=== PATIENT | male | born 1950 | race Caucasian/White ===

== ENCOUNTER 2017-02-26 12:37 | Inpatient (IN) | payer OTHER, BC ==
[~2017-02-26] VITALS: Ht 170.2 cm; Wt 63.6 kg
[~2017-02-26 12:37] MED LIST: PROAIR HFA8.5 GM; SPIRIVA1 INHALATI; TAMSULOSIN HCL0.4 MG
[2017-02-26 13:36] LABS: HEMATOCRIT 46.6 % (38.0-50.0); MCH 31.3 PG (29.0-34.0); MCHC 32.4 G/DL (30.0-36.0); MCV 96.7 FL (86-99); MEAN PLAT.VOLUME 9.8 uM^3 (9.0-12.4); PLATELET COUNT 242 K/uL (156-360); RBC DIS.WIDTH-CV 11.3 % (11.8-14.6); RBC DIS.WIDTH-SD 40.4 % (39-53); RED BLOOD COUNT 4.82 M/uL (4.00-5.50); WHITE BLOOD COUNT 9.9 K/uL (4.1-10.2)
[2017-02-26 13:38] LABS: INTER. NORMALIZED RATIO 1.2; PROTHROMBIN TIME 12.5 (9.2-11.2); PTT 32.4 (25-32)
[2017-02-26 13:52] LABS: TROP-I INTERPRETATION NEGATIVE; TROPONIN-I 0.05 ng/mL (0.0-0.30)
[2017-02-26 14:05] LABS: ANION GAP 7 MEQ/L (2-14); CHLORIDE 94 MEQ/L (99-109); MAGNESIUM 2.5 mg/dl (1.3-2.7); POTASSIUM 4.2 MEQ/L (3.7-5.4); SAMPLE HEMOLYSIS CHECK 0; SAMPLE ICTERIC CHECK 0; SAMPLE LIPEMIA CHECK 0; SODIUM 135 MEQ/L (136-147)
[2017-02-26 14:10] LABS: GFR ESTIMATE (CALCULATED) > 59 mL/min/; GLUCOSE 146 mg/dL (70-99); UREA NITROGEN (BUN) 28 mg/dL (9-23)
[2017-02-26] MEDS ORDERED: TAMSULOSIN HCL0.4 MG PO (16:42)
[2017-02-26] MEDS ORDERED: SPIRIVA1 INHALATI IH (16:42)
[2017-02-26] MEDS ORDERED: PROAIR HFA8.5 GM IH (16:43)
[2017-02-26] MEDS ORDERED: DUTASTERIDE0.5 MG PO (16:43)
[2017-02-26 18:22] VITALS: BP 125/81
[2017-02-26 19:14] LABS: ABS NEUTROPHIL COUNT 8.6; BAND NEUTROPHILS 43.5 % (0-8.0); EOSINOPHIL ABS CT 0; INSTRUMENT ABS NEUTROPHIL CT 7.3 K/uL; PLAT.SUFFICIENCY ADEQUATE; SEG.NEUTROPHILS 43.5 % (46.0-76.0); SMUDGE CELLS 2.6
[2017-02-26 19:17] LABS: INFLUENZA A VIRAL ANTIGEN NEGATIVE; INFLUENZA B VIRAL ANTIGEN NEGATIVE
[2017-02-26 20:03] LABS: TROP-I INTERPRETATION NEGATIVE; TROPONIN-I 0.04 ng/mL (0.0-0.30)
[2017-02-26 20:04] LABS: BASE EXCESS 2.4 mEq/L (-3 to +3); METHEMOGLOBIN 1.8 % (0-1.5); PCO2 89 mm Hg (35-45); PO2 77 mm Hg (80-100)
[2017-02-26 20:05] LABS: COMMENTS - BLOOD GASES C+A+; DEVICE NC; O2 FLOW 4 L/MIN; SITE LR; pH 7.19 (7.35-7.45)
[2017-02-26 20:07] LABS: D-DIMER ELISA 0.93 mg/L FEU (< 0.57)
[2017-02-26 20:50] VITALS: BP 56/41
[2017-02-26 21:00] VITALS: BP 78/60
[2017-02-26 22:00] VITALS: BP 117/76
[2017-02-26 22:04] LABS: BASE EXCESS 1.8 mEq/L (-3 to +3); BICARBONATE 28.2 mEq/L (22-26); CARBOXY HGB 2.5 % (0-5); COMMENTS - BLOOD GASES C+; DEVICE 840; FI02 100 %; METHEMOGLOBIN 2.3 % (0-1.5); MODE AC; PCO2 50 mm Hg (35-45); PO2 548 mm Hg (80-100); SITE LR; pH 7.36 (7.35-7.45)
[2017-02-26 22:05] LABS: MECHANICAL RATE 16 resp/min; PEEP 5 CM/H20; TIDAL VOLUME 500 ML; TOTAL RESP RATE 16 resp/min
[2017-02-26 22:58] LABS: METH RESISTANT S AUREUS PCR NEGATIVE (NEGATIVE)
[2017-02-26 23:00] VITALS: BP 88/64
[2017-02-26 23:00] LABS: PROBE CHECK PASS; SPECIMEN PROCESSING CONTROL PASS
[2017-02-27] VITALS (23 sets, daily range): BP systolic 74–124; BP diastolic 54–75
[2017-02-27 02:24] LABS: TROP-I INTERPRETATION NEGATIVE; TROPONIN-I 0.03 ng/mL (0.0-0.30)
[2017-02-27 06:02] LABS: ANION GAP 7 MEQ/L (2-14); CHLORIDE 94 MEQ/L (99-109); GFR ESTIMATE (CALCULATED) > 59 mL/min/; GLUCOSE 160 mg/dL (70-99); SAMPLE HEMOLYSIS CHECK 0; SAMPLE ICTERIC CHECK 0; SAMPLE LIPEMIA CHECK 0; SODIUM 132 MEQ/L (136-147); UREA NITROGEN (BUN) 24 mg/dL (9-23)
[2017-02-27 07:17] LABS: ABS NEUTROPHIL COUNT 4.6; EOSINOPHIL ABS CT 0; HEMATOCRIT 35.9 % (38.0-50.0); LYMPHOCYTES 2.7 % (15.0-45.0); MCH 31.3 PG (29.0-34.0); MCHC 32.9 G/DL (30.0-36.0); MCV 95.2 FL (86-99); MEAN PLAT.VOLUME 9.9 uM^3 (9.0-12.4); PLAT.SUFFICIENCY ADEQUATE; PLATELET COUNT 196 K/uL (156-360); RBC DIS.WIDTH-CV 11.6 % (11.8-14.6); RBC DIS.WIDTH-SD 40.5 % (39-53)
[2017-02-27 07:34] LABS: BAND NEUTROPHILS 12.6 % (0-8.0); RED BLOOD COUNT 3.77 M/uL (4.00-5.50); SEG.NEUTROPHILS 72.1 % (46.0-76.0); WHITE BLOOD COUNT 5.4 K/uL (4.1-10.2)
[2017-02-28] VITALS (24 sets, daily range): BP systolic 93–121; BP diastolic 59–77
[2017-02-28 15:06] LABS: ALKALINE PHOSPHATASE 33 IU/L (3-129); ANION GAP 2 MEQ/L (2-14); CHLORIDE 99 MEQ/L (99-109); GFR ESTIMATE (CALCULATED) > 59 mL/min/; GLUCOSE 184 mg/dL (70-99); POTASSIUM 4.1 MEQ/L (3.7-5.4); SAMPLE HEMOLYSIS CHECK 1; SAMPLE ICTERIC CHECK 0; SAMPLE LIPEMIA CHECK 0; SODIUM 136 MEQ/L (136-147); TOTAL BILIRUBIN 0.3 MG/DL (0.0-1.0); TRIGLYCERIDES 55 MG/DL (Normal: <150); UREA NITROGEN (BUN) 21 mg/dL (9-23)
[2017-02-28 15:27] LABS: EOSINOPHIL (%) 0 % (0-5); HEMATOCRIT 40.8 % (38.0-50.0); IMMATURE GRANULOCYTE (%) 1.7 % (0.0-0.7); IMMATURE GRANULOCYTE COUNT 0.2 K/uL; INSTRUMENT ABS NEUTROPHIL CT 7.6 K/uL; LYMPHOCYTE COUNT 0.5 K/uL (1.0-2.8); MCH 30.9 PG (29.0-34.0); MCHC 31.9 G/DL (30.0-36.0); MCV 96.9 FL (86-99); MEAN PLAT.VOLUME 9.8 uM^3 (9.0-12.4); MONOCYTE (%) 13.2 % (3-12); MONOCYTE COUNT 1.3 K/uL (0-0.8); NEUTROPHIL (%) 79.8 % (45-76); NEUTROPHIL COUNT 7.6 K/uL (1.8-6.4); PLATELET COUNT 237 K/uL (156-360); RBC DIS.WIDTH-CV 11.7 % (11.8-14.6); RED BLOOD COUNT 4.21 M/uL (4.00-5.50); WHITE BLOOD COUNT 9.5 K/uL (4.1-10.2)
[2017-02-28 16:14] LABS: POTASSIUM 4.1 MEQ/L (3.7-5.4)
[2017-02-28 16:19] LABS: NO-CHARGE AST (GOT) 28 IU/L (15-37)
[2017-03-01] VITALS (15 sets, daily range): BP systolic 100–137; BP diastolic 67–91
[2017-03-02] VITALS (7 sets, daily range): BP systolic 121–142; BP diastolic 75–84
[2017-03-03] VITALS: BP 127/83
[2017-03-03 05:00] VITALS: BP 130/85
[2017-03-03 08:00] VITALS: BP 144/87
[2017-03-03 10:52] VITALS: BP 158/83
[2017-03-03 15:11] LABS: C DIFF TOXIN NEGATIVE (NEGATIVE)
[2017-03-03 15:13] LABS: PROBE CHECK PASS; SPECIMEN PROCESSING CONTROL PASS
[2017-03-03 16:35] VITALS: BP 157/70
[2017-03-03 20:35] VITALS: BP 113/68
[2017-03-04 00:50] VITALS: BP 139/77
[2017-03-04 05:21] VITALS: BP 122/74
[2017-03-04 07:24] VITALS: BP 142/84
[2017-03-04 13:59] VITALS: BP 117/61
[2017-03-04 15:46] VITALS: BP 120/70
[2017-03-04 22:45] VITALS: BP 104/60
[2017-03-05 06:29] LABS: EOSINOPHIL (%) 0.1 % (0-5); HEMATOCRIT 44.6 % (38.0-50.0); IMMATURE GRANULOCYTE (%) 3.5 % (0.0-0.7); IMMATURE GRANULOCYTE COUNT 0.3 K/uL; INSTRUMENT ABS NEUTROPHIL CT 5.4 K/uL; LYMPHOCYTE COUNT 0.7 K/uL (1.0-2.8); MCH 31.2 PG (29.0-34.0); MCHC 32.1 G/DL (30.0-36.0); MCV 97.4 FL (86-99); MEAN PLAT.VOLUME 9.7 uM^3 (9.0-12.4); MONOCYTE (%) 10.7 % (3-12); MONOCYTE COUNT 0.8 K/uL (0-0.8); NEUTROPHIL (%) 76.2 % (45-76); NEUTROPHIL COUNT 5.4 K/uL (1.8-6.4); PLATELET COUNT 261 K/uL (156-360); RBC DIS.WIDTH-CV 11.6 % (11.8-14.6); RBC DIS.WIDTH-SD 41.9 % (39-53); RED BLOOD COUNT 4.58 M/uL (4.00-5.50); WHITE BLOOD COUNT 7.1 K/uL (4.1-10.2)
[2017-03-05] MEDS ORDERED: NICOTINE PATCH1 EAC2 TD (06:53)
[2017-03-05] MEDS ORDERED: OXYGEN MC (06:53)
[2017-03-05] MEDS ORDERED: MILLIPRED DP5 M1 PO (06:53)
[2017-03-05] MEDS ORDERED: AUGMENTIN875 MG PO (06:53)
[2017-03-05] MEDS ORDERED: ADVAIR HFA120 INHALA IH (06:53)
[2017-03-05 06:57] LABS: ALKALINE PHOSPHATASE 32 IU/L (3-129); ANION GAP 3 MEQ/L (2-14); CHLORIDE 99 MEQ/L (99-109); GFR ESTIMATE (CALCULATED) > 59 mL/min/; GLUCOSE 104 mg/dL (70-99); POTASSIUM 4.9 MEQ/L (3.7-5.4); SAMPLE HEMOLYSIS CHECK 0; SAMPLE ICTERIC CHECK 0; SAMPLE LIPEMIA CHECK 0; SODIUM 137 MEQ/L (136-147); UREA NITROGEN (BUN) 16 mg/dL (9-23)
[2017-03-05 06:59] LABS: TOTAL BILIRUBIN 0.7 MG/DL (0.0-1.0)
[2017-03-05 09:14] VITALS: BP 133/82
== END 2017-03-05 14:00 | disposition home or self-care (01) | DRG 208 ==
LOC: EME 12:37 → EDOF 16:33 → 5WEST 16:33 → 4WEST 20:36 → 4EAST 23:46 → 4WEST 03-01 09:21 → 4EAST 03-03 10:29 → 5EAST 03-04 13:12
PROVIDERS: Anesthesiology; Emergency Medicine; Internal Medicine; Nurse Practitioner Adult Health; Pediatrics; Physician Assistant Medical
PROC: 5A1945Z Respiratory Ventilation, 24-96 Consecutive Hours (ICD-10-PCS; principal; 2017-02-26)
PROC: 0BH17EZ Insertion of Endotracheal Airway into Trachea, Via Natural or Artificial Opening (ICD-10-PCS; principal; 2017-02-26)
DX: J44.1 Chronic obstructive pulmonary disease with (acute) exacerbation (principal); J96.02 Acute respiratory failure with hypercapnia; F10.239 Alcohol dependence with withdrawal, unspecified; G25.0 Essential tremor; F17.210 Nicotine dependence, cigarettes, uncomplicated; Z95.1 Presence of aortocoronary bypass graft; Z98.1 Arthrodesis status
CPT/HCPCS: 36600; 71010; 80048; 80053; 81003; 82140; 82248; 82803; 83605; 83735; 84478; 84484; 84999; 85025; 85379; 85610; 85730; 87040; 87070; 87077; 87185; 87205; 87493; 87502; 87641; 93005; 94002; 94003; 94640; 94640 76; 94760; 94799; 99202; 99281; 99285; J0696; J1650; J2060; J2704; J2930; J7030; J7050; J7120; J7512